=== PATIENT | female | born 1945 | race Caucasian/White ===

== ENCOUNTER 2025-02-18 14:34 | Emergency (ER) | payer OTHER, SELFPAY ==
--- NOTE | ~2025-02-18 | XR_ITS ---
CLINICAL HISTORY: pain after softball injury prox tibia Exam: AP and lateral views of the right tibia and fibula. Comparison: None provided. Findings: Bony alignment of the tibia and fibula is anatomic. No fracture or periosteal reaction. No radiopaque foreign bodies. Impression: No fracture. This document has been electronically signed by: Luis Argueta MD on 02/18/2025 15:52:23
--- NOTE | 2025-02-18 15:04 | ED.GENADULT ---
HPI - General Adult General Chief complaint: Extremity Injury, Lower Stated complaint: check diabetes and knee injury Time Seen by Provider: 02/18/25 20:07 Source: patient Mode of arrival: ambulatory Limitations: no limitations History of Present Illness ED Provider: Volodymyr ARAUJO HPI narrative: The patient is an 79-year-old female presenting to the ED reporting earlier today she was playing softball when she jumped to catch a ball (which she caught!) And when landing on her right leg suffered a twisting versus hyperextension injury. Patient did not fall to the ground, and was able to continue playing in additional 13 and things throughout the day. The patient reports following completion of the 2 games she notified her daughter she was experiencing some pain in the right knee with weight-bearing, and was brought to the ED for evaluation. The patient denies previous injury to the affected extremity, denies distal paresthesias or impaired range of motion. The patient also reports she has a history of diabetes, was recently increased from 12 units of Lantus daily, to 16 units, however has noted persistent high blood sugars. The patient denies associated nausea, vomiting, abdominal pain, confusion, or other acute somatic complaint. Related Data Allergies Allergy/AdvReac Type Severity Reaction Status Date / Time No Known Allergies Allergy Unverified 02/18/25 15:06 Review of Systems Review of Systems: Yes all other systems are reviewed and are negative PMFSH Social History Social History Smoked in Last 30 Days: No Use of substances other than those prescribed or required for medical reasons: No Advance Directives: No Advance Directives Information Provided: Yes Do you have a plan to hurt others: No Plan Physical Exam ED Vital Signs: Vital Signs - 24 hr 02/18/25 15:05 02/18/25 16:39 02/18/25 20:34 Temperature 98 F 98.1 F 97.7 F Pulse Rate 88 92 76 Respiratory Rate 16 12 16 Blood Pressure 156/65 H 123/48 L 147/62 H Pulse Oximetry 98 96 99 Oxygen Delivery Method Room Air Room Air Room Air 02/18/25 21:32 Temperature 97.7 F Pulse Rate 76 Respiratory Rate 16 Blood Pressure 147/62 H Pulse Oximetry 99 Oxygen Delivery Method Room Air BMI result Body Mass Index 27.6 CONSTITUTIONAL: The patient appears non-toxic, well nourished and in no acute distress. Vital signs as documented. HEAD: Atraumatic, normocephalic. EYES: EOMs grossly intact, pupils equal, conjunctiva clear, no exudate. ENT: Nares patent, no discharge. Airway patent, no audible stridor, visible mucosa is pink and moist without noted lesions. NECK: trachea is midline, no obvious masses or gross abnormalities. CHEST: Symmetric movement, normal appearance. LUNGS: Non-labored work of breathing. CARDIAC: No evidence of hypoperfusion. ABDOMEN: Nondistended, no obvious injury. : Deferred. EXTREMITIES: Right knee demonstrates no swelling, no ligament laxity or pain with meniscal manipulation. There is mild pain with anterior drawer. Extensor mechanism is intact. Distal CSM is intact, 2+ DP/PT pulses. Moves all other extremities spontaneously without reported pain. No obvious injury or deformity noted. Ambulates with a steady gait. NEURO: Alert and oriented x3, CN II-XII appear grossly intact. Cerebellar Functioning grossly intact. Speech clear and appropriate. SKIN: Warm, dry, color appropriate. No rashes or lesions noted. Course Course Course Narrative: This is a rapid medical exam performed by Nohemi Soares NP: Additional HPI, ROS, PE not included below will be deferred to primary provider. Patient is an 79y/o F presenting with daughter who reports that patient injured right lower leg playing softball. Also states patient has not been checking her blood sugars or taking her insulin. Plan: xray, labs Medications Administered Discontinued Medications Generic Name Dose Route Start Last Admin Trade Name Freq PRN Reason Stop Dose Admin Acetaminophen 975 mg 02/18/25 21:00 02/18/25 21:21 Acetaminophen 325 Mg Tablet PO 02/18/25 21:01 975 mg ONCE ONE Administration Ibuprofen 600 mg 02/18/25 21:00 02/18/25 21:21 Ibuprofen 600 Mg Tablet PO 02/18/25 21:01 600 mg ONCE ONE Administration Lidocaine 1 patch 02/18/25 21:07 02/18/25 21:21 Lidocaine 4 % Patch Adh..Patch TRANSDERMA 02/18/25 21:08 1 patch ONCE ONE Administration Protocol Medical Decision Making Medical Decision Making MDM Narrative: 9:01 PM 02/18/2025 (Jian ARAUJO): The patient is an 79-year-old female presenting to the ED reporting earlier today she was playing softball when she jumped to catch a ball (which she caught!) And when landing on her right leg suffered a twisting versus hyperextension injury. Patient did not fall to the ground, and was able to continue playing in additional 13 and things throughout the day. The patient reports following completion of the 2 games she notified her daughter she was experiencing some pain in the right knee with weight-bearing, and was brought to the ED for evaluation. The patient denies previous injury to the affected extremity, denies distal paresthesias or impaired range of motion. The patient also reports she has a history of diabetes, was recently increased from 12 units of Lantus daily, to 16 units, however has noted persistent high blood sugars. The patient denies associated nausea, vomiting, abdominal pain, confusion, or other acute somatic complaint. In the ED patient is well-appearing, in no acute distress, knee exam demonstrates no swelling, no ligament laxity or pain with meniscal manipulation. The patient reports mild discomfort with anterior drawer. Extensor mechanism is intact. Distal CSM is intact, 2+ DP/PT pulses. Patient's laboratory evaluation demonstrates blood sugar of 213, without acidosis, acetone, or anion gap. The patient's labs demonstrate no leukocytosis, anemia, electrolyte abnormality, or MANUEL. The patient's LFTs are unremarkable. Urinalysis shows no glucose or ketones. There is moderate leukocyte esterase noted, microscopic analysis is pending. The patient does not have any urinary symptoms. However given the patient's elevated blood sugars we will await microscopic analysis to confirm no evidence of urinary tract infection causing hyperglycemia. 9:42 PM 02/18/2025 (Jian ARAUJO): Patient's microscopic urinalysis is negative for infection. Admission/Observation Consideration of admission/observation: Escalation of care including admission/observation considered Lab Data [facility] Lab Attestation statement: I reviewed the patient's lab results. 02/18/25 16:00 02/18/25 16:00 Labs: Lab Results 02/18/25 02/18/25 02/18/25 Range/Units 16:00 16:05 21:19 WBC 9.4 (4.8-10.8) X10*3/uL RBC 4.90 (4.20-5.50) X10*6/uL Hgb 13.3 (12.0-16.0) g/dl Hct 40.0 (37.0-47.0) % MCV 81.6 (80.0-98.0) fL MCH 27.1 (27.0-33.0) pg MCHC 33.3 (31.0-35.0) g/dl RDW 13.2 (11.0-16.0) % Plt Count 226 (160-400) X10*3/uL MPV 9.7 (9.4-12.3) fL Immature Gran % (Auto) 0.4 (0.0-0.4) % Neut % (Auto) 76.2 H (45-73) % Lymph % (Auto) 16.0 L (20-40) % [place] % (Auto) 6.3 (2-11) % Eos % (Auto) 0.7 (0-4) % Baso % (Auto) 0.4 (0-2) % Lymph # (Auto) 1.5 (1.2-4.9) X10*3/uL [place] # (Auto) 0.6 (0.1-1.2) X10*3/uL Eos # (Auto) 0.1 (0.0-0.4) X10*3/uL Baso # (Auto) 0.0 (0.0-0.2) X10*3/uL Abs Immat Gran (auto) 0.04 H (0.00-0.03) X10*3/uL Absolute Neuts (auto) 7.2 (2.0-8.3) x10*3/uL Absolute Nucleated RBC 0.000 (0.0-0.012) X10*3/uL Nucleated RBC % (auto) 0.0 (0.0-0.2) /100WBC VBG pH 7.40 (7.32-7.43) VBG pCO2 50 mmHg VBG pO2 50 mmHg VBG HCO3 31 H (22-26) mmol/L VBG O2 Saturation 71.0 % VBG Base Excess 5.4 mmol/L Sodium 139 (135-145) mmol/L Potassium 4.2 (3.3-5.1) mmol/L Chloride 103 (96-108) mmol/L Carbon Dioxide 28 (22-29) mmol/L Anion Gap 12 (12-20) BUN 13 (9-16) mg/dL Creatinine 1.19 (0.5-1.4) mg/dL Estim Creat Clear Calc 34.2 Estimated GFR 44 Random Glucose 216 H (60-115) mg/dL Calcium 9.9 (8.4-10.2) mg/dL Magnesium 2.0 (1.6-2.6) mg/dL Total Bilirubin 0.6 (0.0-1.0) mg/dL AST 27 (5-31) U/L ALT 18 (0-31) U/L Alkaline Phosphatase 63 (39-117) U/L Total Protein 7.5 (6.5-8.0) g/dL Albumin 4.5 (3.5-5.0) g/dL Beta-Hydroxybutyrate 0.14 (0.02-0.27) mmol/L Urine Color Yellow Urine Appearance Clear Urine pH 8.5 (5.0-9.0) Ur Specific [place] 1.015 (1.005-1.025) Urine Protein Negative (Neg-Trace) mg/dL Urine Glucose (UA) Negative (Negative) mg/dL Urine Ketones Negative (Negative) mg/dL Urine Blood Negative (Negative) Urine Nitrite Negative (Negative) Ur Leukocyte Esterase Moderate (2+) H (Negative) Radiology Impression Discussion of test interpretation with radiology: I have reviewed the radiologist's reading. Radiologist Impression: Exam: AP and lateral views of the right tibia and fibula. Comparison: None provided. Findings: Bony alignment of the tibia and fibula is anatomic. No fracture or periosteal reaction. No radiopaque foreign bodies. Impression: No fracture. This document has been electronically signed by: Luis Argueta MD on 02/18/2025 15:52:23 Discharge Plan Discharge Clinical Impression: Injury of right knee, Hyperglycemia Patient Disposition: Home, Self-Care Instructions: ACL Injury (ED), Diabetic Hyperglycemia (ED) Additional Instructions: Thank you for choosing [facility]'s Emergency Department for your care today. Thankfully your x-ray today shows no evidence of an acute fracture of your knee. Your blood sugar was elevated however there was no evidence of any dangerous complication of your high blood sugar such as diabetic ketoacidosis. At this time there is no indication for admission to the hospital or continued ED observation, and it is safe to discharge you home. Your knee exam is concerning for a possible strain of your anterior cruciate ligament. Thankfully your exam is not concerning for a complete tear of this ligament. Seeing as your knee is stable, can bear weight, and you were able to continue playing after your injury, there is no indication for knee immobilizer or crutches at this time. Please bear weight as tolerated. Please wear the Slava wrap provided for support and comfort. Please elevate and rest the injured area, and you should apply ice over the Slava wrap for 20 minutes every hour. You should take Tylenol 1000mg every 6 hours as needed for any additional pain. We have also treated you with a lidocaine patch, if you find this provides you significant relief additional patches can be purchased at any local pharmacy without a prescription.Please follow up with the orthopedic clinic by calling the number provided. Please also follow up with your primary care physician for re-evaluation, to discuss changes to your diabetes management as deemed appropriate, for additional management of your symptoms, and for continued preventative care. If you do not have a primary care physician, please call the [facility] at [phone] to establish a new primary care physician. While waiting to establish your new primary care physician, you can call our Walk-in Care Clinic at [phone] for non-emergency needs. Please return to the emergency department if you develop a severe or sudden change in your symptoms, a fever over 100.4 that does not improve with Tylenol or Ibuprofen, recurrent vomiting, or any other new or worsening symptoms or concerns. Referrals: [facility] [Provider Group] Clinical Impression: Injury of right knee Willis Pope MD [Primary Care Provider, Internal Medicine] Clinical Impression: Hyperglycemia Interventions: ED Discharge Assessment Last Done: 02/18/25 21:32 Discharge Date/Time: 02/18/25 21:33 Print Language: Georgian
[2025-02-18 15:05] VITALS: BP 156/65; PULSE 88; RESP 16; TEMP 36.6; O2SAT 98; BMI 27.6
--- OUTSIDE RECORDS SUMMARY | 2025-02-18 16:04 | XMS_ITS | Clinical Summary ---
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 Phone Willis Pope MD Primary Care Provider Allergies Active Allergy Reactions Criticality Noted Date Comments Insulin Glargine Fatigue 11/22/2024 Semaglutide Psychiatric 11/22/2024 Depression Medications blood-glucose meter kit USE TO CHECK BLOOD SUGAR DOS VECES AL DIMA 10/02/19 23 Active clonazePAM (KlonoPIN) 0.5 mg tablet TOME BANDAR TABLETA POR V A ORAL AL ACOSTARSE CUANDO SEA NECESARIO 01/15/20 20 Active clonazePAM (KlonoPIN) 1 mg tablet TOME BANDAR TABLETA TODOS LOS D EN LA MA OG CUANDO SEA NECESARIO 01/15/20 20 Active QUEtiapine (SEROquel) 25 mg tablet TOME BANDAR TABLETA POR V A ORAL TODOS LOS D AL ACOSTARSE 09/27/19 24 Active lancets (OneTouch Delica Plus Lancet) 33 gauge Check your sugar 2 times daily. 100 each 3 07/28/19 25 Active escitalopram (LEXAPRO) 20 mg tablet Take 1 tablet (20 mg total) by mouth 1 (one) time each day. 11/03/19 25 Active ramelteon (ROZEREM) 8 mg tablet Take 1 tablet (8 mg total) by mouth at bedtime. 11/03/19 25 Active glucose blood (OneTouch Ultra Test) test stripIndication s:Type 2 diabetes mellitus with stage 3b chronic kidney disease, without long-term current use of insulin ([facility] V24, [facility] V28) Use as instructed 100 strip 11/23/19 25 Active blood-glucose,r eceiver,cont (FreeStyle Giovanna 3 [place]) miscIndications :Type 2 diabetes mellitus with stage 3b chronic kidney disease, without long-term current use of insulin ([facility] [place], [facility] V28) USE DAILY TO CHECK BLOOD SUGAR 1 each 12/23/19 25 Active dulaglutide (Trulicity) 1.5 mg/0.5 mL pen injector injectionIndica tions:Type 2 diabetes mellitus with stage 3b chronic kidney disease, without long-term current use of insulin ([facility] V[facility], [facility] V28) Inject 0.5 mL (1.5 mg total) under the skin every 7 (seven) days. 2 mL 01/04/20 25 Active insulin degludec (TRESIBA FlexTouch U-200) 200 unit/mL (3 mL) CONCENTRATED injection pen 16 units sc at bedtime 15 mL 01/04/20 25 Active blood-glucose sensor (FreeStyle Giovanna 3 Plus Sensor) deviceIndicatio ns:Type 2 diabetes mellitus with stage 3b chronic kidney disease, without long-term current use of insulin ([facility] V24, [facility] V28) Box = Kit = EA 2 each 01/26/20 25 Active pen needle, diabetic (BD Ultra-Fine Micro Pen Needle) 32 gauge x 1/4 needle Please specify directions, refills and quantity 100 each 01/26/20 25 Active rosuvastatin (CRESTOR) 10 mg tabletIndicatio ns:Type 2 diabetes mellitus with diabetic chronic kidney disease ([facility] V24, [facility] V28) TAKE 1 TABLET BY MOUTH 1 TIME EACH DAY. 90 tablet 1 02/06/20 25 Active rosuvastatin (CRESTOR) 10 mg tabletIndicatio ns:Type 2 diabetes mellitus with diabetic chronic kidney disease ([facility] V24, [facility] V28) Take 1 tablet (10 mg total) by mouth 1 (one) time each day. 90 tablet 1 08/15/19 25 025 Discontinued pen needle, diabetic (BD Ultra-Fine Orig Pen Needle) 29 gauge x 1/2 needle USE TO INJECT insulin 1 TIMES DAILY DIRECTED. 100 each 11 05/28 025 Discontinued blood-glucose sensor (FreeStyle Giovanna 3 Plus Sensor) deviceIndicatio ns:Type 2 diabetes mellitus with stage 3b chronic kidney disease, without long-term current use of insulin ([facility] V24, [facility] V28) Box = Kit = EA 2 each 11/23/19 025 Discontinued(R eorder) pen needle, diabetic (NovoFine Plus) 32 gauge x 1/6 needle Use once a day with insulin 100 each 01/26/20 025 Discontinued Active Problems Problem Noted Date Diagnosed Date Anxiety 04/14/2024 Depression 04/14/2024 Stage 3b chronic kidney disease ([facility] V24, [facility] V28) 12/02/2022 Type 2 diabetes mellitus wit h stage 3b chronic kidney disease, without long-term current use of insulin ([facility] V24, [facility] V28) 12/02/2022 Elbow pain, chronic, left 12/29/2018 BPPV (benign paroxysmal positional vertigo) 07/2017 Osteoarthrosis 09/17/2017 Hyperlipidemia 06/29/2013 Encounters Date Type Department Care Team Description 02/01/2025 4:00 PM EDT Consult Internal Medicine - [address] [place] [address] Willis Pope MD Visit for pre-operative examination (Primary Dx); Type 2 diabetes mellitus with stage 3b chronic kidney disease, without long-term current use of insulin ([facility] V24, [facility] V28); Hypercholesterolemia 01/24/2025 Telephone Endocrinology - [address] [phone] Nilsa Ospina PA 01/03/2025 1:30 PM EDT Office Visit Endocrinology [address] [phone] Nilsa Ospina PA Type 2 diabetes mellitus with stage 3b chronic kidney disease, without long-term current use of insulin ([facility] V24, [facility] V28) (Primary Dx); Hyperlipidemia, unspecified hyperlipidemia type; Stage 3b chronic kidney disease ([facility] V24, [facility] V28) 12/12/2024 Telephone Endocrinology - [address] [place], [place] [phone] Nilsa Ospina PA 11/30/2024 Telephone Endocrinology - [address] [place], [place] [phone] Nilsa Ospina PA 11/27/2024 Telephone Endocrinology - [place] [address] [place], [place] [phone] Nilsa Ospina PA 11/22/2024 3:00 PM EDT Office Visit Endocrinology - [address] [phone] Nilsa Ospina PA Type 2 diabetes mellitus with stage 3b chronic kidney disease, without long-term current use of insulin ([facility] V24, [facility] V28) (Primary Dx) from Last 3 Months Immunizations Immunization Administration Dates Next Due Pneumococcal conjugate 13 va lent (Prevnar 13, PCV13) 2mo and older 09/17/2017 Pneumococcal polysaccharide 23 valent (Pneumovax 23) 2yo and older 01/22/2020 Surgical History Surgery Date Site/Laterality Comments OTHER SURGICAL HISTORY PROCEDURE: [place] TOTAL ABDOMINAL HYSTERECT W/WO RMVL TUBE OVARY OTHER SURGICAL HISTORY PROCEDURE: [place] BSO W/OMENTECTOMY JOLEEN&RAD DEBULKING DISSECTION EYE SURGERY PROCEDURE: HISTORICAL EYE SURGERY; COMMENT: lens replacement Medical History Medical History Date Comments Ovarian mass DX:Ovarian mass; COMMENT: non cancerous Depression DX:Depression Anxiety DX:Anxiety Cataract DX:Cataract Family History Medical History Relation Name Comments Other cancer Brother Diabetes Father Other cancer Father Diabetes Mother Other cancer Mother Relation Name Status Comments Brother Father Mother Social History Tobacco Use Types Packs/Day Years Used Date Smoking Tobacco: Never Smokeless Tobacco: Never Tobacco Cessation:Counseling Given: Not Answered Alcohol Use Standard Drinks/Week Comments No 0 (1 standard drink = 0.6 oz pur e alcohol) Comments No Sex and Gender Information Value Date Recorded Sex Assigned at Not on file Legal Sex Female 2:20 AM EST Gender Identity Not on file Sexual Orientation Not on file Obstetrics History Last Filed Vital Signs Vital Sign Reading Time Taken Comments Blood Pressure 104/60 02/01/2025 3:44 PM EDT Pulse 72 02/01/2025 3:44 PM EDT Temperature 35.6 C (96.1 F) 02/01/2025 3:44 PM EDT Respiratory Rate - - Oxygen Saturation 98% 02/01/2025 3:44 PM EDT Inhaled Oxygen Concentration - - Weight 70.1 kg (154 lb 9.6 oz) 02/01/2025 3:44 P M EDT Height 157.5 cm (5' 2 ) 02/01/2025 3:44 PM EDT Body Mass Index 28.28 02/01/2025 3:44 PM EDT Plan of Treatment Upcoming Encounters Date Type Department Care Team (Late st Contact Info) Description 03/20/2025 3:15 PM EST Office Visit Internal Medicine - [place] [facility] [address] [place] [address] Willis Pope MD 175 [facility] [address] [place] [address] 03/22/2025 1:30 PM EST Office Visit Endocrinology [address] [phone] Nilsa Ospina PA [address] [place] [address] Health Maintenance Due Date Last Done Comments COVID-19 Vaccine (#1) 1950 Diabetes: Annual Foot Exam 1954 Diabetes: Annual Retina Eye Exam 1955 DTaP,Tdap,and Td Vaccines (1 - Tdap) 09/19/1963 RSV Immunization Adult Patients (1 - 1-dose 75+ series) 09/19/2019 Falls Risk Assessment 04/05/2022 Medicare Annual Wellness Visit 04/05/2022 Osteoporosis Screening (Bone Density Screening) 04/05/2022 Social Influencers of Health Screening 04/05/2022 Diabetes: Annual Urine Albumin-Creatinine Ratio (uACR) 12/03/2023 12/02/2022 Depression Screening 05/03/2024 Influenza Vaccine (#1) 2025 Diabetes: Blood Sugar Contro l Test (HGBA1C) 05/25/2025 11/22/2024, 08/08/2024, 08/12/2023 Diabetes: Annual GFR (Glomerular Filtration Rate) 08/08/2025 08/08/2024, 12/02/2022 Cholesterol Screening (Lipid Panel) 08/08/2029 08/08/2024, 09/03/2022 Pneumococcal Vaccine: 50+ Years Completed 01/22/2020, 09/17/2017 Zoster Vaccines Completed 10/26/2022, 01/02/2021 HIB Vaccines Aged Out No longer eligi ble based on patient's age to complete this topic HPV Vaccines Aged Out No longer eligi ble based on patient's age to complete this topic Hepatitis A Vaccines Aged Out No long er eligible based on patient's age to complete this topic Hepatitis B Vaccines Aged Out No long er eligible based on patient's age to complete this topic IPV Vaccines Aged Out No longer eligi ble based on patient's age to complete this topic MMR Vaccines Aged Out No longer eligi ble based on patient's age to complete this topic Meningococcal ACWY Vaccine Aged Out N o longer eligible based on patient's age to complete this topic Meningococcal B Vaccine Aged Out No l onger eligible based on patient's age to complete this topic RSV Immunization Patients Under 20 months Aged Out No longer eligible b ased on patient's age to complete this topic Varicella Vaccines Aged Out No longer eligible based on patient's age to complete this topic Procedures Procedure Name Priority Date/Time Associated Diagnosis Comments HEMOGLOBIN A1C Routine 11/22/2024 3:40 PM EDT Type 2 diabetes mellitus with stage 3b chronic kidney disease, without long-term current use of insulin ([facility] V24, [facility] V28) POC GLUCOSE Routine 11/22/2024 3:00 PM EDT Type 2 diabetes mellitus with stage 3b chronic kidney disease, without long-term current use of insulin ([facility] V24, [facility] V28) COMPREHENSIVE METABOLIC PANEL Routine 08/08/2024 2:19 PM EDT Type 2 diabetes mellitus with stage 3b chronic kidney disease, without long-term current use of insulin ([facility] V24, [facility] V28) Primary hypertension Hypercholesterolem ia LIPID PANEL WITH REFLEX TO DIRECT LDL Routine 08/08/2024 2:19 PM EDT Type 2 diabetes mellitus with stage 3b chronic kidney disease, without long-term current use of insulin ([facility] V24, [facility] V28) Primary hypertension Hypercholesterolem ia URINE ALBUMIN CREATININE RATIO Routine 12/02/2022 from Last 3 Months or Most Recently Relevant to Health Maintenance Results * (ABNORMAL) Hemoglobin A1c (11/22/2024 3:40 PM EDT) Hemoglobin A1C 10.5(H) <6.5 % LAB CHEMISTRY METHOD 11/22/2024 9:50 PM EDT [facility] Mean Bld Glu Estim. 255 mg/dL LAB CHEMISTRY METHOD 11/22/2024 9:50 PM EDT [facility] Blood Venous blood specimen / Unknown Venipuncture / Unknown 11/22/2024 3:40 PM EDT 11/22/2024 3:40 PM EDT us Nilsa ARAUJO LAB BLOOD ORDERABLES Final Result [facility] [address] [place] [address], [place] [phone] * POC glucose manually resulted (11/22/2024 3:00 PM EDT) Pathologist [facility] Glucose POC 339 mg/dL Comment:Non fasting Blood Capillary blood specimen / Unknown 11/22/2024 3:00 PM EDT us Nilsa ARAUJO POINT OF CARE TEST ENTER/ED IT ORDERABLES Final Result * (ABNORMAL) Lipid panel with reflex to direct LDL (08/08/2024 2:19 PM EDT) Cholesterol 172 0 - 200 mg/dL LAB CHEMISTRY METHOD 08/08/2024 5:39 PM EDT [facility] Triglycerides 153(H) 0 - 150 mg/dL LAB CHEMISTRY METHOD 08/08/2024 5:39 PM EDT [facility] HDL 68 >=40 mg/dL LAB CHEMISTRY METHOD 08/08/2024 5:39 PM EDT [facility] LDL Calculated 73 0 - 100 mg/dL LAB CHEMISTRY METHOD 08/08/2024 5:39 PM EDT [facility] VLDL Cholesterol Cesar 30.6 mg/dL LAB CHEMISTRY METHOD 08/08/2024 5:39 PM EDT [facility] Non HDL Chol. (LDL+VLDL) 104 <145 mg/dL LAB CHEMISTRY METHOD 08/08/2024 5:39 PM EDT [facility] Chol/HDL Ratio 2.5 0.0 - 4.4 LAB CHEMISTRY METHOD 08/08/2024 5:39 PM EDT [facility] Blood Venous blood specimen / Unknown Venipuncture / Unknown 08/08/2024 2:19 PM EDT 08/08/2024 2:24 PM EDT us Willis Pope MD LAB BLOOD ORDERABLES Final Resul t [facility] [address] [place] [address], [place] [phone] * (ABNORMAL) Comprehensive metabolic panel (08/08/2024 2:19 PM EDT) Sodium 142 133 - 145 mmol/L LAB CHEMISTRY METHOD 08/08/2024 5:39 PM EDT [facility] Potassium 4.3 3.5 - 5.5 mmol/L LAB CHEMISTRY METHOD 08/08/2024 5:39 PM EDT [facility] Chloride 106 96 - 110 mmol/L LAB CHEMISTRY METHOD 08/08/2024 5:39 PM T [facility] CO2 30 21 - 32 mmol/L LAB CHEMISTRY METHOD 08/08/2024 5:39 PM EDT [facility] Anion Gap 6 3 - 11 LAB CHEMISTRY METHOD 08/08/2024 5:39 PM [facility] Glucose 224(H) 70 - 100 mg/dL LAB CHEMISTRY METHOD 08/08/2024 5:39 PM [facility] BUN 17 5 - 25 mg/dL LAB CHEMISTRY METHOD 08/08/2024 5:39 PM [facility] Creatinine 1.04 0.50 - 1.10 mg/dL LAB CHEMISTRY METHOD 08/08/2024 5:39 PM [facility] eGFR 55(L) >=60 mL/min/1. 73m2 LAB CHEMISTRY METHOD 08/08/2024 5:39 PM [facility] Comment:Calculation based on the Chronic Kidney Disease Epidemiology Collaboration (CKD-EPI) equation refit without adjustment for race. BUN/Creatinine Ratio 16.3 LAB CHEMISTRY METHOD 08/08/2024 5:39 PM [facility] Calcium 9.1 8.5 - 10.5 mg/dL LAB CHEMISTRY METHOD 08/08/2024 5:39 PM [facility] AST (SGOT) 20 10 - 42 unit/L LAB CHEMISTRY METHOD 08/08/2024 5:39 PM [facility] ALT (SGPT) 20 10 - 60 unit/L LAB CHEMISTRY METHOD 08/08/2024 5:39 PM [facility] Alkaline Phosphatase 74 42 - 121 unit/L LAB CHEMISTRY METHOD 08/08/2024 5:39 PM [facility] Total Protein 6.7 6.0 - 8.0 g/dL LAB CHEMISTRY METHOD 08/08/2024 5:39 PM [facility] Albumin 3.4 3.2 - 5.0 g/dL LAB CHEMISTRY METHOD 08/08/2024 5:39 PM [facility] Total Bilirubin 0.4 0.0 - 1.4 mg/dL LAB CHEMISTRY METHOD 08/08/2024 5:39 PM EDT [facility] Blood Venous blood specimen / Unknown Venipuncture / Unknown 08/08/2024 2:19 PM EDT 08/08/2024 2:24 PM EDT Willis Pope MD LAB BLOOD ORDERABLES Final Resul t [facility] [address] [place] [address], [place] [phone] * Urine Albumin Creatinine Ratio (12/02/2022) Urine Albumin Creatinine Ratio abstracted us Historical Provider HEALTH MAINTENANCE Final Result from Last 3 Months or Most Recently Relevant to Health Maintenance Insurance MEDICAID - [place] [employer] MEDICARE Care Teams Car Worker Helper Relationship Specialty Start Date End Date Willis Pope MD [address] [place] [phone] PCP - General Internal Medicine 09/20/18
[2025-02-18 16:07] LABS: MANUAL DIFF FLAG NO
[2025-02-18 16:09] LABS: Venous Blood Gas Refer to POC result
[2025-02-18 16:09] LABS: VBG HCO3 31 mmol/L (22-26); VBG O2 % Saturation 71.0 %
[2025-02-18 16:22] LABS: Hematocrit 40.0 % (37.0-47.0); Hemoglobin 13.3 g/dl (12.0-16.0); Imm Gran Abs Auto 0.04 X10*3/uL (0.00-0.03); Imm Gran Pct Auto 0.4 % (0.0-0.4); Lymphocytes Absolute Auto 1.5 X10*3/uL (1.2-4.9); Mean Corpuscular HGB Conc 33.3 g/dl (31.0-35.0); Mean Corpuscular Hemoglobin 27.1 pg (27.0-33.0); Mean Corpuscular Volume 81.6 fL (80.0-98.0); NRBC Abs Auto 0.000 X10*3/uL (0.0-0.012); NRBC Pct Auto 0.0 /100WBC (0.0-0.2); Platelet Count 226 X10*3/uL (160-400); Red Blood Count 4.90 X10*6/uL (4.20-5.50); White Blood Count 9.4 X10*3/uL (4.8-10.8)
[2025-02-18 16:36] LABS: Alanine Aminotransferase 18 U/L (0-31); Albumin Level 4.5 g/dL (3.5-5.0); Anion Gap 12 (12-20); Aspartate Amino Transferase 27 U/L (5-31); Blood Urea Nitrogen 13 mg/dL (9-16); Calcium 9.9 mg/dL (8.4-10.2); Carbon Dioxide 28 mmol/L (22-29); Chloride 103 mmol/L (96-108); Creatinine Clr Calc Pharmacy 34.2; Estimated Glomerular Filt Rate 44; Magnesium 2.0 mg/dL (1.6-2.6); Potassium 4.2 mmol/L (3.3-5.1); Sodium 139 mmol/L (135-145); Total Protein 7.5 g/dL (6.5-8.0)
[2025-02-18 16:39] VITALS: BP 123/48; PULSE 92; RESP 12; TEMP 36.7; O2SAT 96
[2025-02-18 16:50] LABS: Alkaline Phosphatase 63 U/L (39-117)
[2025-02-18 20:34] VITALS: BP 147/62; PULSE 76; RESP 16; TEMP 36.5; O2SAT 99
[2025-02-18] MEDS: Lidocaine 4 % Patch ADH..PATCH 1 PATCH TRANSDERMA (21:21)
[2025-02-18 21:25] LABS: Appearance Urine Clear; Glucose Urine UA Negative (Negative); PH 8.5 (5.0-9.0); Specific Gravity - Urine 1.015 (1.005-1.025); UMIC TRIGGER UACC YES
[2025-02-18 21:32] VITALS: BP 147/62; PULSE 76; RESP 16; TEMP 36.5; O2SAT 99
[2025-02-18 21:37] LABS: UACC Culture Trigger YES
== END 2025-02-18 21:33 | disposition home or self-care (01) ==
PROVIDERS: Registered Nurse Emergency; Emergency Provider Emergency Medicine; PCP Internal Medicine
DX: S89.91XA Unspecified injury of right lower leg, initial encounter (principal); X58.XXXA Exposure to other specified factors, initial encounter; Y93.79 Activity, other specified sports and athletics; Y92.9 Unspecified place or not applicable; Y99.9 Unspecified external cause status; R73.9 Hyperglycemia, unspecified
CPT/HCPCS: 36415; 73590; 80053; 81001; 82010; 82803; 83735; 85025; 87086; 99283; 99284

== ENCOUNTER → 2025-02-18 15:05 | Outpatient (BNV) | payer OTHER, SELFPAY | PROVIDERS: PCP Internal Medicine; Visit Provider Radiology Diagnostic Radiology | DX: M79.661 Pain in right lower leg (principal) | CPT/HCPCS: 73590 ==